=== PATIENT | male | born 1970 | race Caucasian/White ===

== ENCOUNTER → 2020-06-21 | Outpatient (REF) | LOC: M LAB 13:30 | PROVIDERS: ATTEND Nurse Practitioner Adult Health | DX: Z02.89 Encounter for other administrative examinations (principal) ==

== ENCOUNTER → 2020-10-31 | Outpatient (REF) | LOC: M EMP 08:59 | PROVIDERS: ATTEND Family Medicine | DX: Z11.52 Encounter for screening for COVID-19 (principal) ==

== ENCOUNTER 2021-01-24 07:00 | Outpatient (RCR) | payer BC | END 2021-01-25 | LOC: M PT 07:00 | PROVIDERS: ATTEND Family Medicine | DX: M62.830 Muscle spasm of back (principal) ==

== ENCOUNTER → 2021-03-14 | Outpatient (REF) | LOC: M LABSMTC 09:39 | PROVIDERS: ATTEND Family Medicine | DX: Z11.52 Encounter for screening for COVID-19 (principal) ==

== ENCOUNTER → 2021-03-19 | Outpatient (REF) | LOC: M LABSMTC 11:27 | PROVIDERS: ATTEND Family Medicine | DX: Z11.52 Encounter for screening for COVID-19 (principal) ==

== ENCOUNTER → 2021-05-28 | Outpatient (REF) | LOC: M LABSMTC 11:45 | PROVIDERS: ATTEND Family Medicine | DX: Z11.52 Encounter for screening for COVID-19 (principal) ==

== ENCOUNTER → 2022-01-02 | Outpatient (REF) | payer BC | LOC: M SFHCADAM 12:40 | PROVIDERS: ATTEND Family Medicine | DX: M62.830 Muscle spasm of back (principal) ==

== ENCOUNTER → 2022-01-22 | Outpatient (REF) | LOC: M EMP 06:12 | PROVIDERS: ATTEND Family Medicine | DX: Z11.52 Encounter for screening for COVID-19 (principal) ==

== ENCOUNTER → 2022-07-19 | Outpatient (CLI) | payer BC | LOC: M SOG 13:13 | PROVIDERS: ATTEND Orthopaedic Surgery Hand Surgery | DX: M25.562 Pain in left knee (principal) ==

== ENCOUNTER → 2022-08-02 | Outpatient (CLI) | payer BC | LOC: M RAD 06:59 | PROVIDERS: ATTEND Orthopaedic Surgery Hand Surgery | DX: M25.562 Pain in left knee (principal) ==

== ENCOUNTER → 2022-08-02 | Outpatient (CLI) | payer BC ==
[2022-08-02 08:49] LABS: ALBUMIN 3.9 G/DL (3.2-5.2); ALKALINE PHOSPHATASE 65 U/L (46-116); ALT/SGPT 27 U/L (7.0-40); AST/SGOT 20 U/L (<34); BILIRUBIN,TOTAL 0.5 MG/DL (0.3-1.2); BLOOD UREA NITROGEN 16 MG/DL (9-23); CALCIUM LEVEL 8.5 MG/DL (8.5-10.1); CARBON DIOXIDE LEVEL 29 MMOL/L (20-31); CHLORIDE LEVEL 105 MMOL/L (98-107); CHOLESTEROL LEVEL 191 MG/DL (<200); CHOLESTEROL RISK RATIO 4.62 (<5); CREATININE FOR GFR 0.92 MG/DL (0.70-1.30); FREE T4 0.95 NG/DL (0.89-1.76); GLOMERULAR FILTRATION RATE > 60.0 (>56); GLUCOSE, FASTING 96 MG/DL (60-100); HDL CHOLESTEROL 41.3 MG/DL (>40); LDL CHOLESTEROL 106.3 MG/DL (<100); NON-HDL-C 149.7 MG/DL; POTASSIUM SERUM 3.8 MMOL/L (3.5-5.1); SODIUM LEVEL 141 MMOL/L (136-145); THYROID STIMULATING HORMONE 2.307 uIU/ML (0.55-4.78); TOTAL PROTEIN 6.5 G/DL (5.7-8.2); TRIGLYCERIDES LEVEL 217 MG/DL (<150)
== END ==
LOC: M LAB 07:01
PROVIDERS: ATTEND Family Medicine
DX: Z86.79 Personal history of other diseases of the circulatory system (principal); Z86.39 Personal history of other endocrine, nutritional and metabolic disease; Z12.5 Encounter for screening for malignant neoplasm of prostate; Z13.1 Encounter for screening for diabetes mellitus

== ENCOUNTER → 2023-10-16 | Outpatient (REF) | payer OTHER ==
[2023-10-16 18:35] LABS: HEMATOCRIT 39.9 % (42.0-52.0); HEMOGLOBIN 13.8 g/dl (13.5-17.5); MEAN CORPUSCULAR HEMOGLOBIN 31.6 pg (27.0-33.0); MEAN CORPUSCULAR HGB CONC 34.6 g/dl (32.0-36.5); MEAN CORPUSCULAR VOLUME 91.3 fl (80.0-96.0); PLATELET COUNT, AUTOMATED 126 10^3/uL (150-450); RED BLOOD COUNT 4.37 10^6/uL (4.30-6.10); WHITE BLOOD COUNT 5.5 10^3/uL (4.0-10.0)
[2023-10-16 19:05] LABS: PSA SCREENING 0.46 NG/ML (< 4.00)
[2023-10-16 19:09] LABS: THYROID STIMULATING HORMONE 2.715 uIU/ML (0.55-4.78)
[2023-10-16 19:11] LABS: ALBUMIN 3.9 G/DL (3.2-5.2); ALKALINE PHOSPHATASE 81 U/L (46-116); ALT/SGPT 24 U/L (7.0-40); AST/SGOT 10 U/L (<34); BILIRUBIN,TOTAL 0.4 MG/DL (0.3-1.2); BLOOD UREA NITROGEN 21 MG/DL (9-23); CALCIUM LEVEL 8.7 MG/DL (8.5-10.1); CARBON DIOXIDE LEVEL 26 MMOL/L (20-31); CHLORIDE LEVEL 109 MMOL/L (98-107); CHOLESTEROL LEVEL 172 MG/DL (<200); CHOLESTEROL RISK RATIO 4.81 (<5); CREATININE FOR GFR 0.86 MG/DL (0.70-1.30); FREE T4 1.01 NG/DL (0.89-1.76); GLOMERULAR FILTRATION RATE > 60.0 (>56); GLUCOSE, FASTING 92 MG/DL (60-100); HDL CHOLESTEROL 35.7 MG/DL (>40); LDL CHOLESTEROL 58.7 MG/DL (<100); MAGNESIUM LEVEL 1.9 MG/DL (1.8-2.4); NON-HDL-C 136.3 MG/DL; SODIUM LEVEL 141 MMOL/L (136-145); TOTAL PROTEIN 6.4 G/DL (5.7-8.2); TRIGLYCERIDES LEVEL 388 MG/DL (<150)
[2023-10-16 19:12] LABS: VITAMIN B12 LEVEL 417 PG/ML (211-911)
[2023-10-16 19:13] LABS: FOLATE 14.39 NG/ML (>5.4)
[2023-10-16 19:27] LABS: HEMOGLOBIN A1c 4.8 % (4.0-6.0)
== END ==
LOC: M SFHCADAM 14:20
PROVIDERS: ATTEND Family Medicine
DX: R06.09 Other forms of dyspnea (principal); R53.83 Other fatigue; Z86.39 Personal history of other endocrine, nutritional and metabolic disease; Z12.5 Encounter for screening for malignant neoplasm of prostate; Z53.20 Procedure and treatment not carried out because of patient's decision for unspecified reasons